=== PATIENT | female | born 2000 | race Caucasian/White ===

== ENCOUNTER → 2021-08-19 10:17 | Outpatient (CLI) | payer BC, SELFPAY ==
[2021-08-19 11:28] LABS: HCG,Quantitative 2639 mIU/ml (0-5.42)
== END ==
PROVIDERS: Visit Provider Obstetrics & Gynecology
DX: Z34.90 Encounter for supervision of normal pregnancy, unspecified, unspecified trimester (principal)
CPT/HCPCS: 36415; 84702

== ENCOUNTER → 2021-08-21 10:41 | Outpatient (CLI) | payer BC, SELFPAY ==
[2021-08-21 12:46] LABS: HCG,Quantitative 5757 mIU/ml (0-5.42)
== END ==
PROVIDERS: Visit Provider Obstetrics & Gynecology
DX: Z34.90 Encounter for supervision of normal pregnancy, unspecified, unspecified trimester (principal)
CPT/HCPCS: 36415; 84702

== ENCOUNTER 2021-08-25 09:02 | Emergency (ER) | payer BC, SELFPAY ==
[2021-08-25 09:34] LABS: Strep Scrn Group A (Rapid) Negative (Negative)
--- NOTE | 2021-08-25 09:35 | HMH.EDUTC ---
[facility] Disposition Clinical Impression: Pharyngitis Qualifiers: Pharyngitis/tonsillitis etiology: unspecified etiology Qualified Code(s): J02.9 - Acute pharyngitis, unspecified Disposition: Home, Self-Care Condition on Discharge: Good Instructions: Strep Throat, DI for Strep Throat Additional Instructions: Drink plenty of fluids. Take tylenol or ibuprofen for pain or fever. Take the medications as directed. Follow up with your regular doctor. GO TO THE ER FOR ANY WORSENING SYMPTOMS Prescriptions: Azithromycin [Z-Uday 250mg Tab*] 250 mg PO UD DOSE PK #6 tab Referrals: Provider,Referral, [Primary Care Provider] - Forms: Work/School Release Time of Disposition: 09:55 Medical Decision Making - Medical Records Medical records reviewed: No: I reviewed the patient's medical records. - Matteo Inquiry Pt receiving controlled substance: No Vital Signs: 08/25/21 09:40 Temperature 98.7 F Temperature Source Oral Pulse Rate [Left] 81 Respiratory Rate 16 Blood Pressure [Right Arm] 119/72 Blood Pressure Mean [Right Arm] 87 02 Sat by Pulse Oximetry 100 Oxygen Delivery Method Room Air - Lab Data Lab results reviewed: Yes: I reviewed the patient's lab results. Lab Results 08/25/21 09:15: Group A Strep Rapid Negative Orders (Tests/Meds): ORDERS Category Date Time Status Strep Screen Confirmation Stat Micro 08/25/21 09:15 Received [facility] HPI - General Stated complaint: congestion, cough, sore throat Time Seen by Provider: 08/25/21 09:35 - History of Present Illness Provider Complaint: She states that for the past 3 days she has had a sore throat and a cough. She denies fever. She is 5 to 6 weeks . - Related Data Previous Rx's Medication Instructions Recorded Azithromycin [Z-Uday 250mg Tab*] 250 mg PO UD DOSE PK #6 tab 08/25/21 Allergies Allergy/AdvReac Type Severity Reaction Status Date / Time No Known Allergies Allergy Verified 08/25/21 09:47 [facility] History - Hepatitis A Screen Attestation statement:: This patient has been screened for Hepatitis A risk factors. I have reviewed the patient's past medical history: Yes ROS Obtained: Yes All systems reviewed & no additional complaints - Constitutional Constitutional: Reports as per HPI, Reports chills, Denies fever(s), Reports poor appetite, Reports malaise - Eyes Eyes: Denies eye discharge - ENT Ears, Nose, Mouth, and Throat: Reports as per HPI - Cardiovascular Cardiovascular: Denies chest pain - Respiratory Respiratory: Denies chest congestion, Reports cough, Denies dyspnea, Denies stridor, Denies wheezing Physical Exam - General General appearance: alert, in no apparent distress - Head Head exam: atraumatic, normocephalic, normal inspection - Eye Eye exam: Present: normal appearance, PERRL, EOMI - ENT ENT exam: Present: mucous membranes moist, normal external ear exam - Expanded ENT Exam TM/Canal exam: Bilateral TM: erythema, bulging Nose exam: Absent: sinus tenderness Nasal speculum exam: Bilateral: normal Mouth exam: Present: normal external inspection, tongue normal. Absent: drooling Teeth exam: Present: normal inspection Throat exam: Present: tonsillar erythema, tonsillomegaly. Absent: tonsillar exudate, R peritonsillar mass, L peritonsillar mass, muffled voice - Neck Neck exam: Present: normal inspection, full ROM, trachea midline. Absent: meningismus, lymphadenopathy - Chest Chest inspection: Present: normal inspection, symmetric chest wall rise. Absent: tenderness - Respiratory Respiratory exam: Present: normal lung sounds bilaterally. Absent: respiratory distress - Cardiovascular Cardiovascular exam: Present: regular rate, normal rhythm. Absent: JVD - Abdominal Exam Abdominal exam: Present: soft, normal bowel sounds. Absent: distention, tenderness, guarding - Extremities Exam Extremities exam: Present: normal inspection, full ROM, normal capillary
[2021-08-25 09:40] VITALS: BP 119/72; PULSE 81; RESP 16; TEMP 37.1; O2SAT 100; BMI 83.2
[2021-08-25 09:58] VITALS: BP 119/72; PULSE 81; RESP 16; TEMP 37.1
== END 2021-08-25 10:03 | disposition home or self-care (01) ==
PROVIDERS: Emergency Provider Nurse Practitioner Family
DX: J02.9 Acute pharyngitis, unspecified (principal); Z34.90 Encounter for supervision of normal pregnancy, unspecified, unspecified trimester
CPT/HCPCS: 87430; 99212; G0463

== ENCOUNTER → 2021-09-09 08:51 | Outpatient (CLI) | payer BC, SELFPAY ==
--- NOTE | 2021-09-09 08:52 | US_ITS ---
FINAL REPORT CLINICAL HISTORY: Dates FINDINGS: Sonographic images of the pelvis were obtained. A single, living intrauterine is noted. A yolk sac is present and measures 0.54 cm. [place] to rump length measures 1.46 cm which corresponds to 7 weeks 6 days gestation. Heartbeat is identified and measures 154 beats per minute. There is a 2.1 cm right ovarian cyst. The left ovary is within normal limits. IMPRESSION: Single, living, intrauterine gestation with 7 weeks 6 days ultrasound age. Reviewed, Interpreted and Dictated by Tyler Mcdowell III, MD Transcribed by Devi Lux Authenticated by Tyler Mcdowell III, MD on 09/09/2021 12:11:40 PM [facility]
== END ==
LOC: RAD 08:52
PROVIDERS: Visit Provider Obstetrics & Gynecology
DX: Z34.90 Encounter for supervision of normal pregnancy, unspecified, unspecified trimester (principal)
CPT/HCPCS: 76801

== ENCOUNTER → 2021-09-15 09:39 | Outpatient (CLI) | payer BC, SELFPAY ==
[2021-09-15 11:52] LABS: Basophils # 0.1 K/mm3 (0-0.2); Basophils % 1.4 % (0.1-2.0); Eosinophils # 0.1 K/mm3 (0.0-0.4); Eosinophils % 0.9 % (0.1-12.0); Hematocrit 39.7 % (37.0-47.0); Hemoglobin 13.8 g/dL (12.2-16.2); Lymphocytes # 1.5 K/mm3 (0.7-4.5); Lymphocytes % 21.6 % (10-50); Mean Corpuscular HGB Conc 34.7 g/dL (31.8-35.4); Mean Corpuscular Hemoglobin 29.2 pg (27.0-31.2); Mean Corpuscular Volume 84.1 fl (81-99); Mean Platelet Volume 7.2 fl (7.4-10.4); Monocytes # 0.3 K/mm3 (0.1-1.0); Monocytes % 3.4 % (1.7-9.3); Neutrophils # 5.2 K/mm3 (1.8-7.8); Neutrophils % 72.6 % (37.0-80.0); Platelet Count 281 K/mm3 (142-424); Red Blood Count 4.72 M/mm3 (4.20-5.40); Red Cell Distribution Width 13.6 % (11.5-17.5); White Blood Count 7.2 K/mm3 (4.8-10.8)
[2021-09-16 08:18] LABS: HIV Screen 4th Generation wRfx Non Reactive (Non Reactive); Hepatitis B Surface Antigen Negative (Negative); Hepatitis C Antibody <0.1 s/co ratio (0.0-0.9); Rubella Antibodies, IgG <0.90 index (Immune >0.99)
[2021-09-16 14:15] LABS: Rapid Plasma Reagin Ab Titer Non Reactive (NonRea<1:1)
== END ==
PROVIDERS: Visit Provider Obstetrics & Gynecology
DX: Z34.90 Encounter for supervision of normal pregnancy, unspecified, unspecified trimester (principal)
CPT/HCPCS: 36415; 85025; 86592; 86703; 86762; 86850; 87340; 87380; G0432

== ENCOUNTER → 2021-11-27 12:48 | Outpatient (CLI) | payer BC, SELFPAY ==
--- NOTE | 2021-11-27 12:48 | US_ITS ---
FINAL REPORT CLINICAL HISTORY: OB complete FINDINGS: There is a single live intrauterine gestation. Presentation is breech. The cervix is closed and measures 3.3 cm. Placenta is posterior, grade 1. There is a small fluid collection under the placenta which may represent focal abruption. movement is noted. Heart rate is measured at 142 beats per minute. Three-vessel cord with satisfactory umbilical cord insertion. Four-chamber heart is noted. brain and ventricles are unremarkable. Chest and diaphragm are unremarkable. ABDOMEN: Both kidneys are unremarkable. Stomach is unremarkable. SPINE: No anomalies identified. Both arms and legs noted. AMNIOTIC FLUID: Appropriate amount. MEASUREMENTS: ULTRASOUND AGE: 19 weeks 1 day. GESTATION AGE: 19 weeks 1 day. ESTIMATED WEIGHT: 288 g GROWTH PERCENTILE: 58% BPD: 4.2 cm corresponding with 18 weeks 5 days. OFD: 5.8 cm corresponding with 20 weeks 1 day. HC: 15.9 cm corresponding with 18 weeks 6 days. AC: 15.2 cm corresponding with 20 weeks 3 days. FL: 2.7 cm corresponding with 18 weeks 3 days. CEREBELLUM: 1.8 cm corresponding with 19 weeks 0 days. HUMERUS: 2.8 cm corresponding with 19 weeks 0 days. HC/AC: 1.05 CI: 72% FL/BPD: 65% FL/AC: 18% IMPRESSION: Single living IUP with an ultrasound age of 19 weeks 1 days. Small fluid collection under the placenta which may represent focal abruption. The ordering physician was notified of these findings by the maintenance mechanic technician at the time of the exam. Follow-up ultrasound may be helpful. Reviewed, Interpreted and Dictated by Tyler Mcdowell III, MD Transcribed by Devi Lux Authenticated and [facility]
== END ==
PROVIDERS: PCP Physician Assistant; Visit Provider Obstetrics & Gynecology
DX: Z34.90 Encounter for supervision of normal pregnancy, unspecified, unspecified trimester (principal)
CPT/HCPCS: 76811

== ENCOUNTER → 2021-12-21 13:01 | Outpatient (CLI) | payer BC, SELFPAY ==
--- NOTE | 2021-12-21 13:01 | US_ITS ---
FINAL REPORT CLINICAL HISTORY: Placental fluid collection (see previous report); still seen in placenta, patient is asymptomatic; appropriate growth and fluid; movements seen FINDINGS: There is a single live intrauterine gestation. Presentation is cephalic. The cervix is closed and measures . Placenta is posterior. A persistent fluid collection posterior to the placenta measuring 3.6 x 3.0 x 1.2 cm appears similar to the prior exam. This is of uncertain etiology but could represent focal abruption. movement is noted. heart rate is 146 beats per minute. MEASUREMENTS: ULTRASOUND AGE: 22 weeks 5 days. GESTATION AGE: 22 weeks 4 days. ESTIMATED WEIGHT: 518 g GROWTH PERCENTILE: 44 BPD: 5.48 cm corresponding to 2 knee 2 weeks 5 days. OFD: 7.05 cm corresponding to 22 weeks 5 days. HC: 19.84 cm corresponding to 21 weeks 1 day. AC: 17.71 cm corresponding to 22 weeks 5 days. FL: 3.95 cm corresponding to 22 weeks 6 days. HC/AC: 1.12 CI: 78% FL/BPD: 72% FL/AC: 22% IMPRESSION: Single living IUP with an ultrasound age of 22 weeks 5 days. Persistent fluid collection posterior to the placenta is unchanged and of uncertain etiology. This could represent a focal abruption. Reviewed, Interpreted and Dictated by Tyler Mcdowell III, MD Transcribed by Renee Hilton Authenticated and [facility]
== END ==
LOC: RAD 13:01
PROVIDERS: PCP Physician Assistant; Visit Provider Obstetrics & Gynecology
DX: O41.90X0 Disorder of amniotic fluid and membranes, unspecified, unspecified trimester, not applicable or unspecified (principal)
CPT/HCPCS: 76816

== ENCOUNTER → 2022-01-16 08:14 | Outpatient (CLI) | payer BC, SELFPAY ==
[2022-01-16 08:46] LABS: Basophils % 0.5 % (0.1-2.0); Eosinophils # 0.1 K/mm3 (0.0-0.4); Eosinophils % 1.5 % (0.1-12.0); Hematocrit 36.5 % (37.0-47.0); Hemoglobin 12.4 g/dL (12.2-16.2); Lymphocytes # 1.6 K/mm3 (0.7-4.5); Lymphocytes % 21.5 % (10-50); Mean Corpuscular Hemoglobin 30.4 pg (27.0-31.2); Mean Corpuscular Volume 89.5 fl (81-99); Mean Platelet Volume 7.8 fl (7.4-10.4); Monocytes # 0.3 K/mm3 (0.1-1.0); Neutrophils # 5.5 K/mm3 (1.8-7.8); Neutrophils % 72.5 % (37.0-80.0); Platelet Count 281 K/mm3 (142-424); Red Blood Count 4.08 M/mm3 (4.20-5.40); Red Cell Distribution Width 14.3 % (11.5-17.5); White Blood Count 7.6 K/mm3 (4.8-10.8)
[2022-01-16 09:05] LABS: Glucose,Fasting 77 mg/dl (74-100)
[2022-01-16 10:54] LABS: Glucose 1 Hour 122 mg/dL (74-100)
== END ==
PROVIDERS: PCP Physician Assistant; Visit Provider Obstetrics & Gynecology
DX: Z34.90 Encounter for supervision of normal pregnancy, unspecified, unspecified trimester (principal)
CPT/HCPCS: 36415; 82951; 85025

== ENCOUNTER → 2022-03-15 12:43 | Outpatient (CLI) | payer BC, SELFPAY ==
--- NOTE | 2022-03-15 12:43 | US_ITS ---
FINAL REPORT TECHNIQUE: Transvaginal ultrasound imaging of the pelvis was obtained. CLINICAL HISTORY: lga/ tosin COMPARISON: 12/21/2021 FINDINGS: There is a single live intrauterine gestation. Presentation is cephalic. The cervix is closed and measures 4.5 cm. Placenta is posterior. Again seen is a small fluid collection posterior to the placenta measuring 2.9 cm, similar to prior exam. movement is noted. heart rate is 149 beats per minute. TOSIN measures 13.5 cm. MEASUREMENTS: ULTRASOUND AGE : 35 weeks 0 days GESTATION AGE: 34 weeks 4 days. ESTIMATED WEIGHT: 5 lb 7 oz. GROWTH PERCENTILE: 47 BPD: 8.55 cm corresponding to 34 weeks 4 days. OFD: 11.74 cm HC: 32.26 cm corresponding with 36 weeks 4 days. AC: 31 0.04 cm consistent with 35 weeks 0 days. FL: 6.46 cm corresponding with 33 weeks 3 days. HC/AC: 1.04 CI: 73% FL/BPD: 76% FL/AC: 21% IMPRESSION: Single living IUP with an ultrasound age of 35 weeks 0 days. Persistent fluid collection posterior to the placenta is unchanged and of uncertain etiology. Reviewed, Interpreted and Dictated by Jorge Hernandez MD Transcribed by Yolanda Melgoza Authenticated and [facility]
[2022-03-23 18:10] VITALS: BMI 40.5
[2022-03-23 18:50] LABS: Microscopic, Urine URINE MICROSCOPIC (MICROSCOPIC)
[2022-03-23 18:56] LABS: Appearance,Urine CLEAR (Clear); Color,Urine YELLOW (Yellow); Specific Gravity, Urine 1.025 (1.005-1.030)
[2022-03-23 18:57] LABS: Bilirubin,Urine Negative (Negative); Blood, Urine Negative (Negative); Glucose,Urine (UA) Negative (Negative); Ketones,Urine 1+ (Negative); Leukocyte Esterase,Urine 1+ (Negative); Nitrate,Urine Negative (Negative); Protein,Urine Negative (Negative); Urobilinogen,Urine 0.2 EU/dl (0.2)
[2022-03-23 18:59] LABS: Bacteria,Urine 3+ /lpf
[2022-03-23 19:00] LABS: Amphetamine/Metha Screen,Urine Negative ng/ml (<1000); Barbiturates Screen,Urine Negative ng/ml (<200); Benzodiazepines Screen,Urine Negative ng/ml (<200); Cannabinoid Screen,Urine Negative ng/ml (<50); Cocaine Screen,Urine Negative ng/ml (<300); Methadone Screen,Urine Negative ng/ml (<300); Opiate Screen,Urine Negative ng/ml (<300); Phencyclidine Screen,Urine Negative ng/ml (<25)
== END ==
PROVIDERS: PCP Physician Assistant; Visit Provider Obstetrics & Gynecology
DX: O28.8 Other abnormal findings on antenatal screening of mother (principal); O36.60X0 Maternal care for excessive fetal growth, unspecified trimester, not applicable or unspecified
CPT/HCPCS: 76816; 80305; 81001; 87086

== ENCOUNTER 2022-03-23 17:53 | Outpatient (CLI) | payer BC, SELFPAY ==
[2022-03-23 18:27] VITALS: BMI 40.5
[2022-03-23 18:28] VITALS: BP 124/73; PULSE 121; RESP 18; TEMP 36.5; O2SAT 96
[2022-03-23 18:29] VITALS: BP 124/73; PULSE 121; RESP 18; TEMP 36.5; O2SAT 96; BMI 40.5
== END 2022-03-23 19:45 | disposition home or self-care (01) ==
LOC: OBOUT 17:55 → OB 18:17
PROVIDERS: PCP Physician Assistant; Visit Provider Nurse Practitioner Obstetrics & Gynecology
DX: O36.8130 Decreased fetal movements, third trimester, not applicable or unspecified (principal); Z3A.35 35 weeks gestation of pregnancy
CPT/HCPCS: 59025; G0463

== ENCOUNTER → 2022-04-06 17:12 | Outpatient (CLI) | payer BC, SELFPAY | PROVIDERS: Visit Provider Obstetrics & Gynecology | DX: Z34.90 Encounter for supervision of normal pregnancy, unspecified, unspecified trimester (principal) | CPT/HCPCS: 86403 ==

== ENCOUNTER 2022-04-13 05:56 | Inpatient (IN) | payer BC, SELFPAY ==
[2022-04-12 16:10] VITALS: BMI 41.5
[2022-04-12 16:59] LABS: Coronavirus 19, PCR Not Detected (NotDetected); Influenza A, PCR Not Detected (NotDetected); Influenza B, PCR Not Detected (NotDetected); Microscopic, Urine URINE MICROSCOPIC (MICROSCOPIC)
[2022-04-12 17:09] LABS: Appearance,Urine CLEAR (Clear); Bilirubin,Urine Negative (Negative); Blood, Urine Negative (Negative); Color,Urine YELLOW (Yellow); Glucose,Urine (UA) Negative (Negative); Ketones,Urine Negative (Negative); Leukocyte Esterase,Urine TRACE (Negative); Nitrate,Urine Negative (Negative); PH,Urine 8.5 (5.0-8.5); Protein,Urine Negative (Negative); Specific Gravity, Urine 1.015 (1.005-1.030); Urobilinogen,Urine 0.2 EU/dl (0.2)
[2022-04-12 17:09] LABS: Basophils # 0.1 K/mm3 (0-0.2); Basophils % 0.8 % (0.1-2.0); Eosinophils # 0.1 K/mm3 (0.0-0.4); Eosinophils % 1.1 % (0.1-12.0); Hematocrit 38.4 % (37.0-47.0); Lymphocytes # 1.7 K/mm3 (0.7-4.5); Lymphocytes % 20.1 % (10-50); Mean Corpuscular HGB Conc 33.9 g/dL (31.8-35.4); Mean Corpuscular Hemoglobin 30.3 pg (27.0-31.2); Mean Corpuscular Volume 89.5 fl (81-99); Mean Platelet Volume 8.3 fl (7.4-10.4); Monocytes # 0.4 K/mm3 (0.1-1.0); Monocytes % 4.5 % (1.7-9.3); Neutrophils # 6.3 K/mm3 (1.8-7.8); Neutrophils % 73.6 % (37.0-80.0); Platelet Count 251 K/mm3 (142-424); Red Blood Count 4.29 M/mm3 (4.20-5.40); Red Cell Distribution Width 13.4 % (11.5-17.5); White Blood Count 8.6 K/mm3 (4.8-10.8)
[2022-04-12 17:27] LABS: Amphetamine/Metha Screen,Urine Negative ng/ml (<1000)
[2022-04-12 17:28] LABS: Barbiturates Screen,Urine Negative ng/ml (<200); Benzodiazepines Screen,Urine Negative ng/ml (<200)
[2022-04-12 17:29] LABS: Cannabinoid Screen,Urine Negative ng/ml (<50); Cocaine Screen,Urine Negative ng/ml (<300)
[2022-04-12 17:30] LABS: Methadone Screen,Urine Negative ng/ml (<300)
[2022-04-12 17:31] LABS: Opiate Screen,Urine Negative ng/ml (<300); Phencyclidine Screen,Urine Negative ng/ml (<25)
[2022-04-12 17:38] LABS: WBC,Urine Occasional #/hpf (0-3)
[2022-04-12 18:50] VITALS: BP 130/72; PULSE 114; RESP 18; TEMP 36.6; O2SAT 98; BMI 41.3
[2022-04-12 19:29] VITALS: BP 130/65; PULSE 93; RESP 16; TEMP 36.9; O2SAT 97
[2022-04-13] VITALS (7 sets, daily range): BP systolic 129–148; BP diastolic 69–98; PULSE 94–122; RESP 15–19; TEMP 36.5–36.9; O2SAT 97–99
--- NOTE | 2022-04-13 13:14 | EXP.HP ---
History of Present Illness *Admission Date: 04/12/22 *Reason for visit:: Induction of labor *History of present illness: 21 yo G1 @ 38 6/7 DB 04/21/22; dating by 7 10/13 ultrasound care at [facility]--Dr. Hsu complicated by 3x3cm placental velasquez noted on 20 week ultrasound This subchorionic bleed did not resolve or decrease in size over the course of the and was still 2.9cm at 34 weeks She has not had vaginal bleeding but is having decreased movement and was scheduled for IOL per [facility] recommendation labs significant for Rh negative maternal status with negative Rh factor on NIPT She is also rubella non-immune [facility] Disclaimer: The information contained in this section may have been updated after the patient was seen, as this information can be updated by other users. Social History Smoking Status: Never smoker alcohol intake: never substance use type: denies use current occupational status: employed Travel in the last 8 weeks: None Review of Systems Constitutional Constitutional: Reports system reviewed and no additional complaints, except as documented and Denies headache(s) ENT Ears, Nose, Mouth, and Throat: Denies headache(s) *Genitourinary Genitourinary: Denies abnormal vaginal bleeding *Neurologic Neurologic: Denies headache(s) and Denies other visual disturbances Meds Home Medications and Allergies Home Medications Medication Instructions Recorded Confirmed Type cetirizine 10 mg capsule (Zyrtec) 10 mg PO DAILY PRN Allergy Symptoms 09/15/21 04/13/22 History ondansetron 4 mg disintegrating 4 mg PO Q4H PRN nausea and 09/15/21 04/13/22 Rx tablet vomiting #30 tabs ferrous sulfate 325 mg (65 mg 325 mg PO DAILY Supplement 04/13/22 04/13/22 History iron) tablet vits no.126-ferrous fum 1 tab PO DAILY Supplement 04/13/22 04/13/22 History 28 mg iron-folic acid 800 mcg tablet (Classic ) New Prescriptions to Start Prescriptions: Allergies Allergy/AdvReac Type Severity Reaction Status Date / Time No Known Allergies Allergy Verified 04/06/22 12:58 Exam Data for Last 24 hours Vital signs and Labs for Last 24 Hours: Temp Pulse Resp BP Pulse Ox 98.2 F 97 H 16 129/73 99 04/13/22 03:52 04/13/22 03:52 04/13/22 03:52 04/13/22 03:52 04/13/22 03:52 Laboratory Results - last 24 hr 04/12/22 16:15: Urine Color Yellow, Urine Appearance Clear, Urine pH 8.5, Ur Specific [place] 1.015, Urine Protein Negative, Urine Glucose (UA) Negative, Urine Ketones Negative, Urine Blood Negative, Urine Nitrate Negative, Urine Bilirubin Negative, Urine Urobilinogen 0.2, Ur Leukocyte Esterase Trace, Urine RBC None, Urine WBC Occasional, Ur Squamous Epith Cells 5-10, Urine Bacteria None 04/12/22 16:15: SARS-CoV-2 (PCR) Not detected, Influenza A Untype (PCR) Not detected, Influenza Type B (PCR) Not detected 04/12/22 16:15: Urine Opiates Screen Negative, Urine Methadone Screen Negative, Ur Barbituates Screen Negative, Ur Phencyclidine Scrn Negative, Ur Amphetamines Screen Negative, U Benzodiazepines Scrn Negative, Urine Cocaine Screen Negative, U Marijuana (THC) Screen Negative 04/12/22 16:40: WBC 8.6, RBC 4.29, Hgb 13.0, Hct 38.4, MCV 89.5, MCH 30.3, MCHC 33.9, RDW 13.4, Plt Count 251, MPV 8.3, Neut % (Auto) 73.6, Lymph % (Auto) 20.1, [place] % (Auto) 4.5, Eos % (Auto) 1.1, Baso % (Auto) 0.8, Neut # (Auto) 6.3, Lymph # (Auto) 1.7, [place] # (Auto) 0.4, Eos # (Auto) 0.1, Baso # (Auto) 0.1 04/12/22 16:40: Blood Type O Negative, Antibody Screen Negative I & O for Last 24 hours: Intake & Output 04/11/22 04/12/22 04/13/22 04/14/22 11:59 11:59 11:59 11:59 Weight 241 lb 15.987 oz Constitutional Constitutional: no acute distress *Routine HEENT Exam Head: Present normocephalic Eye: Absent conjunctival icterus or scleral injection ENT: Present mucous membranes moist *Routine Neck Exam Nec
--- NOTE | 2022-04-13 18:42 | EXP.ANES.CKL ---
[facility] Disclaimer: The information contained in this section may have been updated after the patient was seen, as this information can be updated by other users. Social History Smoking Status: Never smoker alcohol intake: never substance use type: denies use current occupational status: employed Travel in the last 8 weeks: None [facility] Anesthesia Checklist Patient Identification Patient Identification: Arm Band and Verbal (Name & ) Structural Data Admitted From: Home Planned Operative Procedure/s: Consent for Planned Operative Procedure(s) Verified: Yes Verified Documents: Surgical Consent NPO Status Verified Time NPO: 00:00 Airway Assessment C-Spine Mobility Assessed: Yes TMJ Mobility Assessed: Yes Dentition: Good Dentition Neurological Assessment Level of Consciousness: Awake, Alert and Appropriate Anesthesia Plan Anesthesia Risk discussed: Yes ASA Class: II Anesthesia Type: Epidural
--- NOTE | 2022-04-13 19:00 | EXP.LABOR.NO ---
Labor Note Subjective: Date: 04/13/22 Time: 19:00 Comment:: Regular contractions q 1-2 minutes Pitocin augmentation all day but cervix still 4-5cm No change in cervix over past 4 hours and increasing caput noted on vertex NST has remained category 1 Recommend delivery via c section for failure to progress Informed consent obtained and questions answered for patient, her and her mother Pitocin discontinued Will proceed to OR Assessment: All Active Problems (Updated 04/13/22 @ 17:05 by Syeda Hsu MD) 38 weeks gestation of (Acute) Decreased movement affecting management of in third trimester (Acute) Placental abruption in third trimester (Acute) Placental abruption in second trimester (Acute) Rubella non-immune status, antepartum (Acute) Rh negative status during (Acute) Nausea and vomiting during (Acute) History of hidradenitis suppurativa (Acute) (Acute) Pharyngitis (Acute)
[2022-04-13 22:12] LABS: Cord Blood PH 7.34 (7.35-7.45)
--- NOTE | 2022-04-13 22:37 | SUR.OPER ---
late entry 2200 viable baby boy born 2224 QBL protocol initiated in OR. no methergine per Dr. Hsu. Dr. Hsu states uterus is firm. Amberly Wilhelm OB RN placed 2 units RBC's on hold. 3 18g IV placed in left a/c x3 attempts.
--- NOTE | 2022-04-13 22:51 | P.OP_ITS ---
Date of procedure: 04/13/22 Pre-op Diagnosis:: 1. 38 weeks gestation 2. Uteroplacental insuffiency secondary to placental lacunae 3. Decreased movement 4. Failure to progress in labor Post-op Diagnosis:: Same Procedure performed:: Primary Low Transverse C Section Surgeon:: Syeda Hsu MD System Developer Associate Manager(s):: Kusum Thompson CST METER ATTENDANT:: Sonny Merino Anesthesia: epidural Estimated blood loss (mL): 1,200 Operative findings:: Live born male in vertex presentation Grossly normal uterus and ovaries Placental abruption on 3cm surface Operative note:: The patient was taken to the OR and epidural anesthesia was confirmed to be adequate. She was prepped and draped in normal sterile fashion. A pfannenstiel skin incision was made with the scalpel and carried down to the fascia. The fascia was incised in the midline and sharply dissected off the rectus muscles. The muscles were in the midline and the peritoneum was entered sharply and extended bluntly. The Rodney-O self retaining retractor was placed in the abdomen and a bladder flap was created. The uterus was incised in the lower uterine segment in a transverse fashion and extended bluntly. The infant was delivered in controlled fashion, without complication or shoulder dystocia. The infant was vigorous at and handed to awaiting retail pharmacist and nursing staff for evaluation after cord clamped and cut. Cord blood was collected for pH and a cord segment was preserved. The placenta was manually extracted and noted to be intact, with 3cm surface lesion c/w previous noted hemorrhage. The uterus was repaired with 0-vicryl in a running/locked fashion. Moderate brisk bleeding occurred from uterine incision, requiring multiple clamps around hysterostomy. A second layer was placed fr hemostasis. The fascia was closed with #1 vicryl in a running fashion. The subcutaneous fat was closed with 2-0 vicryl in an interrupted fashion. The skin was closed with modesta. The patie nt tolerated the procedure well. Sponge, lap, needle and instrument counts were correct x 2. EBL: 1200cc. She was taken to PACU awake and in stable condition. Condition: stable Disposition: PACU Specimens:: Placenta, cord segment, cord blood for pH Complications:: None
--- NOTE | 2022-04-13 23:06 | P.PNANES_ITS ---
[facility] Anesthesia Record Part I Anesthesia Record I Intake, IV Amount: 1,200 Estimated blood loss (mL): 1,200 Urine output (mL): 300 Blood Pressure: 148/95 SaO2: 97 Pulse Rate: 122 Respiratory Rate: 15 Temperature: 97.7 F Patient is:: Drowsy Stable to PACU at:: 23:05
--- NOTE | 2022-04-13 23:21 | SUR.OPER ---
late entry 225 time out for tap block performed 225 tap block initiated 2300 tap block completed
--- NOTE | 2022-04-13 23:50 | SUR.PHASEI ---
2333 called and gave detailed report to Amberly Wilhelm OB RN 2340 transported via bed to OB room. vital signs stable. Richie Merino SUPERVISOR BOAT OUTFITTING aware of elevated heart rate and is okay with pt going to regular room with pulse below 120. denies pain at this time. left in stable condition with Amberly Wilhelm OB RN at bedside.
[2022-04-14 05:58] VITALS: BP 132/65; PULSE 104; RESP 16; TEMP 36.8; O2SAT 97
[2022-04-14 07:39] LABS: Hematocrit 29.3 % (37.0-47.0); Hemoglobin 10.1 g/dL (12.2-16.2)
[2022-04-14 09:22] VITALS: BP 148/95; PULSE 122; RESP 15; TEMP 36.5; O2SAT 97
--- NOTE | 2022-04-14 11:15 | P.PNANES_ITS ---
[facility] Anesthesia Record Part II Anesthesia Record Part II Discharge Time: 23:40 Destination: Obstetric PACU nurse assessment reviewed?: Yes Patient Condition:: Good Anesthesia Complications:: None Swallowing reflex intact?: Yes Cyanosis?: No Blood Pressure: 136/77 Pulse Rate: 116 Temperature: 97.8 F Mental Status: Alert & Oriented Pain level:: 0 Nausea and/or vomitting:: None Intake, IV Amount: 0
[2022-04-14 11:16] VITALS: BP 136/77; PULSE 116; TEMP 36.6
--- NOTE | 2022-04-14 12:20 | EXP.ACUTE.PN ---
Subjective *Date: 04/14/22 *Time: 12:20 Interval history: POD #1 Primary LTCS for failure to progress in labor No unusual complaints today She is voiding without difficulty since catheter removed She is tolerating a regular diet Pain control is sufficient Lochia appropriate and Hgb 10.1 today (13.0 at admission with surgical EBL 1200cc) Heart rate has been elevated today but she remains afebrile and feeling well Infant Rh negative, precluding the need for Rhogam Medical Exam Vital signs and Labs for Last 24 Hours: Vital Signs Temp Pulse Pulse Pulse Resp BP BP 04/14/22 05:58 98.2 F 104 H 16 132/65 04/13/22 19:39 98.4 F 94 H 17 131/69 04/13/22 23:40 97.8 F 116 H 18 136/77 04/13/22 23:25 114 H 19 130/84 04/13/22 23:15 120 H 17 140/84 04/13/22 23:35 118 H 18 134/73 04/13/22 23:05 97.7 F 122 H 15 148/98 H 04/14/22 11:16 97.8 F 116 H 136/77 04/14/22 09:22 97.7 F 122 H 15 148/95 H Pulse Ox 04/14/22 05:58 97 04/13/22 19:39 99 04/13/22 23:40 97 04/13/22 23:25 97 04/13/22 23:15 97 04/13/22 23:35 97 04/13/22 23:05 97 04/14/22 11:16 04/14/22 09:22 Intake and Output 04/14/22 04/14/22 04/14/22 03:59 11:59 19:59 Intake Total 240 / 1440 1200 / 1440 Balance 240 / 1440 1200 / 1440 Intake: Intake, Oral Amount 240 / 240 Intake, Total IV Amount 1200 / 1200 Laboratory Results - last 24 hr 04/12/22 16:40: Blood Type O Negative, Antibody Screen Negative, Crossmatch (AHG) See Detail 04/13/22 22:09: Cord ABG pH 7.34 L 04/14/22 07:24: Hgb 10.1 L, Hct 29.3 L I & O for Labs for Last 24 Hours: Intake & Output 04/12/22 04/13/22 04/14/22 04/15/22 11:59 11:59 11:59 11:59 Intake Total 1440 / 1440 Balance 1440 / 1440 Weight 241 lb 15.987 oz Comment:: No acute distress Comment:: breathing unlabored Comment:: Regular rate, normal peripheral pulses Comments:: abdomen soft, non-distended Mild tenderness Comment:: uterine fundus firm below umbilicus Comment:: 1+ edema bilateral lower extremities Comment:: Incision dry/intact Assessment and Plan *Assessment and plan (1) 38 weeks gestation of : Status: Acute Category: Medical Code(s): Z3A.38 - 38 weeks gestation of (2) Placental abruption in third trimester: Status: Acute Category: Medical Code(s): O45.93 - Premature separation of placenta, unspecified, third trimester (3) Decreased movement affecting management of in third trimester: Status: Acute Category: Medical Code(s): O36.8130 - Decreased movements, third trimester, not applicable or unspecified (4) Failure to progress in labor: Status: Acute Category: Medical Code(s): O62.2 - Other uterine inertia (5) Delivered by section: Status: Acute Category: Medical Code(s): Z38.01 - Single liveborn infant, delivered by (6) Anemia associated with acute blood loss: Status: Acute Category: Medical Code(s): D62 - Acute posthemorrhagic anemia (7) Rh negative status during : Status: Acute Category: Medical Code(s): O26.899 - Other specified related conditions, unspecified trimester; Z67.91 - Unspecified blood type, Rh negative (8) Rubella non-immune status, antepartum: Status: Acute Category: Medical Code(s): O09.899 - Supervision of other high risk pregnancies, unspecified trimester; Z28.39 - Other underimmunization status (9) Body mass index [BMI] 40.0-44.9, adult: Status: Acute Category: Medical Code(s): Z68.41 - Body mass index [BMI] 40.0-44.9, adult Plan Routine postop/ care Advance care as tolerated Ferrous sulfate started for acute blood loss anemia MMR will be offered prior to discharge Rhogam administration
[2022-04-15 08:44] VITALS: BP 126/59; PULSE 92; RESP 16; TEMP 36.8; O2SAT 97
--- NOTE | 2022-04-15 17:58 | EXP.ACUTE.PN ---
Subjective *Date: 04/15/22 *Time: 17:58 Interval history: POD #2 primary LTCS No unusual complaints Tolerating a regular diet Ambulating and voiding without difficulty Asymptomatic with anemia Anticipate discharge tomorrow Medical Exam Vital signs and Labs for Last 24 Hours: Vital Signs Temp Pulse Resp BP Pulse Ox 04/15/22 08:44 98.2 F 92 H 16 126/59 L 97 Laboratory Results - last 24 hr 04/12/22 16:40: Crossmatch ([facility]) See Detail I & O for Labs for Last 24 Hours: Intake & Output 04/13/22 04/14/22 04/15/22 04/16/22 11:59 11:59 11:59 11:59 Intake Total 1440 / 1440 Balance 1440 / 1440 Weight 241 lb 15.987 oz Comment:: No acute distress Comment:: breathing unlabored Comment:: Regular rate, normal peripheral pulses Comments:: abdomen soft, non-distended Mild tenderness Comment:: uterine fundus firm below umbilicus Comment:: 1+ edema bilateral lower extremities Comment:: Incision dry/intact Assessment and Plan *Assessment and plan (1) Body mass index [BMI] 40.0-44.9, adult: Status: Acute Category: Medical Code(s): Z68.41 - Body mass index [BMI] 40.0-44.9, adult (2) Anemia associated with acute blood loss: Status: Acute Category: Medical Code(s): D62 - Acute posthemorrhagic anemia (3) Delivered by section: Status: Acute Category: Medical Code(s): Z38.01 - Single liveborn infant, delivered by (4) Failure to progress in labor: Status: Acute Category: Medical Code(s): O62.2 - Other uterine inertia (5) 38 weeks gestation of : Status: Acute Category: Medical Code(s): Z3A.38 - 38 weeks gestation of (6) Decreased movement affecting management of in third trimester: Status: Acute Category: Medical Code(s): O36.8130 - Decreased movements, third trimester, not applicable or unspecified (7) Placental abruption in third trimester: Status: Acute Category: Medical Code(s): O45.93 - Premature separation of placenta, unspecified, third trimester (8) Rubella non-immune status, antepartum: Status: Acute Category: Medical Code(s): O09.899 - Supervision of other high risk pregnancies, unspecified trimester; Z28.39 - Other underimmunization status (9) Rh negative status during : Status: Acute Category: Medical Code(s): O26.899 - Other specified related conditions, unspecified trimester; Z67.91 - Unspecified blood type, Rh negative Plan Anticipate discharge home tomorrow MMR prior to discharge Rhogam not indicated with negative Rh Continue ferrous sulfate Plan staple removal prior to discharge
--- NOTE | 2022-04-16 11:49 | EXP.DC.SUM ---
General Admission date:: 04/13/22 HPI HPI HPI: 21 yo G1 @ 38 6/7 DB 04/21/22; dating by 7 10/13 ultrasound care at [facility]--Dr. Hsu complicated by 3x3cm placental velasquez noted on 20 week ultrasound This subchorionic bleed did not resolve or decrease in size over the course of the and was still 2.9cm at 34 weeks She has not had vaginal bleeding but is having decreased movement and was scheduled for IOL per [facility] recommendation labs significant for Rh negative maternal status with negative Rh factor on NIPT She is also rubella non-immune Hospital Course Hospital Course Hospital Course: course uncomplicated She is discharged home on POD #3 in stable condition She is asymptomatic with anemia and lochia is appropriate She is tolerating a regular diet She is ambulating and voiding without difficulty Pain control is sufficient [place] removed prior to discharge Exam Data for Last 24 hours Vital signs and Labs for Last 24 Hours: Temp Pulse Resp BP Pulse Ox 98.2 F 92 H 16 126/59 L 97 04/15/22 08:44 04/15/22 08:44 04/15/22 08:44 04/15/22 08:44 04/15/22 08:44 Laboratory Results - last 24 hr 04/12/22 16:40: Crossmatch ([facility]) See Detail I & O for Last 24 hours: Intake & Output 04/13/22 04/14/22 04/15/22 04/16/22 11:59 11:59 11:59 11:59 Intake Total 1440 / 1440 Balance 1440 / 1440 Weight 241 lb 15.987 oz Constitutional Constitutional: no acute distress *Routine HEENT Exam Head: Present normocephalic Eye: Absent conjunctival icterus or scleral injection ENT: Present mucous membranes moist *Routine Neck Exam Neck: Present supple *Routine Respiratory Exam Respiratory: Present CTA bilaterally *Routine Cardiovascular Exam Cardiovascular: Present RRR *Routine Abdominal Exam Abdominal: Present soft; Absent tenderness or distended *Routine Rectal Exam Patient deferred: visual exam and digital exam *Routine Exam Patient deferred: external exam Comments: Fundus firm below umbilicus *Routine Extremities Exam Extremities: Present edema *Routine Skin Exam Skin: Present intact and dry Comments: Incision intact without erythema or purulent drainage *Routine Neurological Exam Neurological: Present alert and oriented X3 Routine Psychiatric Exam Psychiatric: Present normal affect; Absent depressed Results Data Completed and Pending Labs on day of discharge: Labs from last 24 hours 04/12/22 16:40 Crossmatch ([facility]G) See Detail DS: Diagnosis Discharge Diagnosis (1) Body mass index [BMI] 40.0-44.9, adult: Status: Acute (2) Anemia associated with acute blood loss: Status: Acute (3) Delivered by section: Status: Acute (4) Failure to progress in labor: Status: Acute (5) 38 weeks gestation of : Status: Acute (6) Decreased movement affecting management of in third trimester: Status: Acute (7) Placental abruption in third trimester: Status: Acute (8) Rubella non-immune status, antepartum: Status: Acute (9) Rh negative status during : Status: Acute Meds Home Medications and Allergies Home Medications Medication Instructions Recorded Confirmed Type cetirizine 10 mg capsule (Zyrtec) 10 mg PO DAILY PRN Allergy Symptoms 09/15/21 04/13/22 History ondansetron 4 mg disintegrating 4 mg PO Q4H PRN nausea and 09/15/21 04/13/22 Rx tablet vomiting #30 tabs ferrous sulfate 325 mg (65 mg 325 mg PO DAILY Supplement 04/13/22 04/13/22 History iron) tablet vits no.126-ferrous fum 1 tab PO DAILY Supplement 04/13/22 04/13/22 History 28 mg iron-folic acid 800 mcg tablet (Classic ) ibuprofen 400 mg tablet 800 mg PO Q6HP PRN Mild To 04/16/22 Rx Moderate Pain #40 tabs oxycodone 5 mg tablet 10 mg PO Q4HP PRN Moderate To 04/16/22 Rx Severe Pain #24 tabs New Prescriptions to Start Prescripti
== END 2022-04-16 13:50 | disposition home or self-care (01) | DRG 786 ==
LOC: OBOUT 05:57 → OB 05:57
PROVIDERS: Obstetrics & Gynecology; Admitting Provider Obstetrics & Gynecology; PCP Physician Assistant; Referring Provider Obstetrics & Gynecology; Visit Provider Obstetrics & Gynecology
PROC: 10D00Z1 Extraction of Products of Conception, Low, Open Approach (ICD-10-PCS; CPT 59514; principal; 2022-04-13 20:00)
DX: O36.8130 Decreased fetal movements, third trimester, not applicable or unspecified (principal); O45.8X3 Other premature separation of placenta, third trimester; O65.4 Obstructed labor due to fetopelvic disproportion, unspecified; O36.5130 Maternal care for known or suspected placental insufficiency, third trimester, not applicable or unspecified; Z3A.38 38 weeks gestation of pregnancy; Z37.0 Single live birth; O61.0 Failed medical induction of labor
CPT/HCPCS: 59514; 36415; 59025; 80305; 81001; 82800; 85014; 85018; 85025; 86850; 88307; 94761; 96360; C1758; C9290; C9803; G0283; J0595; J2405; U0003; U0005